=== PATIENT | female | born 1940 ===

== ENCOUNTER 2018-02-08 09:11 | Day surgery (SDC) | payer MEDICARE ==
[2016-09-12 12:35] VITALS: BMI 30.4
[2018-02-08] MEDS ORDERED: Lactated Ringer's 500 ML IV ONE (10:50)
[2018-02-08] MEDS ORDERED: Midazolam 2 MG/2 ML VIAL ONE (11:13)
[2018-02-08] MEDS ORDERED: Propofol 10 mg/ml Inj (20 ML) ONE (11:13)
[2018-02-08 11:48] VITALS: TEMP 97.2
[2018-02-08 12:11] VITALS: BP 117/62; PULSE 70; RESP 16; O2SAT 100
== END 2018-02-08 12:15 | disposition home or self-care (01) ==
LOC: H.ENDO 09:11 → EDSTATUS 11:15 → H.ENDO 12:15
PROVIDERS: ATTEND Internal Medicine Gastroenterology
DX: Z12.11 Encounter for screening for malignant neoplasm of colon (principal); K64.8 Other hemorrhoids; K57.30 Diverticulosis of large intestine without perforation or abscess without bleeding; E11.9 Type 2 diabetes mellitus without complications; E78.5 Hyperlipidemia, unspecified; I10 Essential (primary) hypertension; F32.9 Major depressive disorder, single episode, unspecified; M10.9 Gout, unspecified; D64.9 Anemia, unspecified
CPT/HCPCS: 45378; J2001; J2250; J2704; J7120

== ENCOUNTER 2018-05-03 07:45 | Day surgery (SDC) | payer MEDICARE, OTHER ==
[2018-05-03 08:14] VITALS: BMI 31.2
[2018-05-03] MEDS ORDERED: Lactated Ringer's 500 ML IV ONE (08:15)
[2018-05-03] MEDS ORDERED: Propofol 10 mg/ml Inj (20 ML) ONE (08:26)
[2018-05-03 10:12] VITALS: TEMP 97
[2018-05-03 10:32] VITALS: BP 109/62; PULSE 64; RESP 16; O2SAT 100
== END 2018-05-03 14:12 | disposition home or self-care (01) ==
LOC: H.ENDO 07:45
PROVIDERS: ATTEND Internal Medicine Gastroenterology
DX: D50.9 Iron deficiency anemia, unspecified (principal); I10 Essential (primary) hypertension; K31.89 Other diseases of stomach and duodenum
CPT/HCPCS: 43239; 88305; J2001; J2704; J7120